=== PATIENT | female | born 1990 | race Caucasian/White ===

== ENCOUNTER 2017-09-04 18:11 | Emergency (ER) | payer BC ==
--- NOTE | 2017-09-04 19:07 | ER Document Report ---
HPI - HPI Pain Level: Denies Notes: Patient is a 26-year-old female who presents to the emergency department with complaint of anxiety. Patient states that she ran out of her Lamictal, Zoloft and lorazepam 1 week ago. Patient states that she lives in [place] and has tried to get into a physician to have her medications refilled but they are booked for another 3 weeks. Patient states that she has been feeling very anxious lately so she came up here with her children to stay with her parents for a week. Patient denies any suicidal or homicidal ideations. Patient denies any other past medical history or surgical history. - REPRODUCTIVE Reproductive: DENIES: : Past Medical History - Social History Smoking Status: Current Every Day Smoker Chew tobacco use (# tins/day): No Frequency of alcohol use: Rare Drug Abuse: None Family History: Reviewed & Not Pertinent Patient has suicidal ideation: No Patient has homicidal ideation: No - Past Medical History Cardiac Medical History: Denies: Hx Coronary Artery Disease, Hx Heart Attack, Hx Hypertension Pulmonary Medical History: Denies: Hx Asthma, Hx Bronchitis, Hx COPD, Hx Pneumonia Neurological Medical History: Denies: Hx Cerebrovascular Accident, Hx Seizures Renal/ Medical History: Denies: Hx Peritoneal Dialysis Musculoskeltal Medical History: Denies Hx Arthritis Psychiatric Medical History: Reports: Hx Depression Past Surgical History: Reports: Hx Section, Hx Gynecologic Surgery, Hx Nose Surgery. Denies: Hx Hysterectomy, Hx Pacemaker - Immunizations Hx Diphtheria, Pertussis, Tetanus Vaccination: No Vertical Provider Document - CONSTITUTIONAL Agree With Documented VS: Yes Exam Limitations: No Limitations - INFECTION CONTROL TRAVEL OUTSIDE OF THE [place] IN LAST 30 DAYS: No - HEENT HEENT: Atraumatic - NECK Neck: Normal Inspection - RESPIRATORY Respiratory: Breath Sounds Normal - CARDIOVASCULAR Cardiovascular: Regular Rate, Regular Rhythm Pulses: Normal: Radial - MUSCULOSKELETAL/EXTREMETIES Musculoskeletal/Extremeties: FROM - NEURO Level of Consciousness: Awake, Alert, Appropriate - DERM Integumentary: Warm, Dry Course - Re-evaluation Re-evalutation: Patient requesting refill on her Lamictal and Zoloft. Patient states that she has been off of her medications for 1 week as she ran out of them. Patient states that over the last 2 years she has been seen by her FINANCIAL REPORTING MANAGER as she has been twice, patient states that her FINANCIAL REPORTING MANAGER typically filled her medications for her. Patient states that as her prescription was about to run out she contacted her FINANCIAL REPORTING MANAGER who stated she needed to find a primary care provider. Patient states that she has tried multiple primary care providers as well as psychiatric provider in the soonest she can get in is 3 weeks from now. Patient resides in [place] and has a appointment set up with a psychiatrist in 3 weeks. Will refill meds today for 30 day supply as patient does have a follow-up plan. Patient does appear anxious however she denies any suicidal or homicidal ideations. Patient is currently staying in [place] with her parents for a one-week vacation and states that she has good family support. Patient was concerned about the fact that she had stopped taking her medication cold , and how it will affect her to restart on the same doses that she was previously on. I did discuss this with Dr. Velasquez who said that he did not feel it would harm the patient to restart her on her previous dose but that if she felt more comfortable with that we could start on a lower dose. Patient does not want to start new lower dose and is requesting the full dose of her medication which will be provided. Patient was given outpatient list of mental health resources in the area in case she needs any mental health intervention while here in [place]. - Vital Signs Vital signs: Temp Pulse Resp BP Pulse Ox 98.0 F 85 16 123/90 H 100 09/04/17 18:21 09/04/17 18:21 09/04/17 18:21 09/04/17 18:21 09/04/17 18:21 Discharge - Discharge Clinical Impression: Medication refill Condition: Stable Disposition: HOME, SELF-CARE Additional Instructions: Please take medications as prescribed. You may use the Vistaril as needed for anxiety symptoms. I have enclosed a copy of outpatient psychiatric resources in the area, [facility] health services/mobile crisis has a 24 hour hotline that you may use if needed. Please return to the emergency department immediately if you start experiencing any thoughts of self-harm. Please keep the follow-up appointment that you have with your new psychiatrist in 3 weeks. Prescriptions: Hydroxyzine Pamoate [Vistaril 25 mg Capsule] 1 - 2 tab PO Q6 PRN #30 capsule PRN Reason: Lamotrigine [Lamictal] 150 mg PO DAILY #30 tablet Sertraline HCl [Zoloft] 100 mg PO DAILY #30 tablet Referrals: CAROLIN GALLEGOS PA-C [NO LOCAL MD] - Follow up as needed
[2017-09-04 19:23] VITALS: BP 120/84
== END 2017-09-04 19:21 | disposition home or self-care (01) ==
LOC: ER 18:11
DX: F41.9 Anxiety disorder, unspecified (principal); F17.200 Nicotine dependence, unspecified, uncomplicated
CPT/HCPCS: 99281